=== PATIENT | female | born 1955 | race Caucasian/White ===

== ENCOUNTER 2020-11-07 13:43 | Observation (INO) ==
[2020-11-07 14:32] LABS: Basophils % 0.3 %; Eosinophils # 0.7 K/mcL (0.0-0.6); Eosinophils % 4.6 %; Hematocrit 40.5 % (35.3-44.9); Hemoglobin 13.2 g/dL (11.5-15.4); Immature Granulocytes % 0.4 % (0-4); Lymphocytes # 3.7 K/mcL (0.6-4.6); Lymphocytes % 26.1 %; Mean Corpuscular HGB Conc 32.6 g/dL (31.6-35.5); Mean Corpuscular Hemoglobin 27.6 pg (28.0-33.3); Mean Corpuscular Volume 84.6 fL (83.0-100.0); Monocytes # 0.9 K/mcL (0.0-1.3); Neutrophils # 8.9 K/mcL (1.6-8.9); Platelet Count 296 K/mcL (140-400); Red Blood Count 4.79 M/mcL (3.82-4.97); Red Cell Distribution Width 14.6 % (11.5-14.5); Segmented Neutrophils % 62.6 %; White Blood Count 14.2 K/mcL (4.3-11.1)
[2020-11-07 14:41] LABS: ABG Base Excess 4 mEq/L (-2 to 3); ABG HCO3 29 mEq/L (21-27); ABG Oxygen Saturation 93 % (95-98); ABG PCO2 44 mmHg (35-45); ABG PH 7.43 pH Units (7.32-7.45); ABG PO2 67 mmHg (85-104); ABG TCO2 30 mEq/L (20-26)
[2020-11-07 14:49] LABS: Activated Partial Thrombo Time 31.8 Seconds (26.0-36.0); Prothrombin Time 11.7 Seconds (9.4-12.1)
[2020-11-07 14:51] LABS: Alanine Aminotransferase 30 Units/L (7-52); Albumin/Globulin Ratio 1.6 (1.1-2.2); Alkaline Phosphatase 41 Units/L (34-104); Aspartate Amino Transferase 36 Units/L (13-39); BUN/Creatinine Ratio 28 (6-26); Bilirubin,Direct 0.1 mg/dL (0.0-0.2); Bilirubin,Indirect 0.4 mg/dL (0.0-1.0); Bilirubin,Total 0.5 mg/dL (0.3-1.0); Blood Urea Nitrogen 28 mg/dL (8-23); Calcium 9.1 mg/dL (8.6-10.3); Carbon Dioxide 30 mEq/L (23-29); Chloride 101 mEq/L (98-107); Ethanol < 10 mg/dL (Less than 10); Globulin 2.5 g/dL (2.4-3.5); Glucose 113 mg/dL (70-105); Osmolality,Calculated 294 (280-300); Potassium 3.6 mEq/L (3.5-5.1); Sodium 139 mEq/L (136-145); Total Protein 6.5 g/dL (6.4-8.9); eGFR For African Americans > 60 (> 60); eGFR For Non-African Americans 56 (> 60)
[2020-11-07 14:52] LABS: Troponin I < 0.03 ng/mL (< 0.04)
[2020-11-07 15:12] LABS: Bilirubin,Urine Small (Negative); Blood,Urine Negative (Negative); Clarity,Urine Clear (Clear); Glucose,Urine (UA) Normal (Normal); Ketones,Urine Trace mg/dL (Negative); Leukocyte Esterase,Urine Negative (Negative); Nitrite,Urine Negative (Negative); PH,Urine 5.5 pH Units (5.0-8.0); Protein,Urine Negative (Neg-Trace); Specific Gravity,Urine >= 1.030 (1.010-1.025); Urobilinogen,Urine Normal (Normal)
[2020-11-07 15:15] LABS: Platelet Estimate Normal (Normal); Reactive Lymphocytes Present (Not Present)
[2020-11-07 15:25] LABS: Amphetamine Screen,Urine Negative ng/mL (Cutoff=1000); Barbiturate Screen,Urine Negative ng/mL (Cutoff=200); Benzodiazepines Screen,Urine Negative ng/mL (Cutoff=200); Cannabinoid Screen,Urine Positive ng/mL (Cutoff = 50); Cocaine Screen,Urine Negative ng/mL (Cutoff= 300); Opiate Screen,Urine Negative ng/mL (Cutoff=300); Phencyclidine Screen,Urine Negative ng/mL (Cutoff=25)
[2020-11-07] MEDS ORDERED: Naloxone 0.4 MG/ML INJ IVP PRN (20:27)
[2020-11-07] MEDS ORDERED: traZODone 50 MG TABLET PO SCH (21:00)
[2020-11-07] MEDS: Carbidopa/Levodopa 25/100 TABLET PO SCH (21:47)
[2020-11-07] MEDS: Budesonide/Formoterol 160/4.5 1 PUFF INH IH SCH (23:11)
[2020-11-08] MEDS ORDERED: QUEtiapine Fumarate 25 MG TABLET PO SCH (09:00)
[2020-11-08] MEDS ORDERED: hydrOXYzine pamoate 25 MG CAPSULE PO SCH (09:00)
[2020-11-08] MEDS ORDERED: amLODIPine 5 MG TABLET PO SCH (09:00)
[2020-11-08] MEDS: Carbidopa/Levodopa 25/100 TABLET PO SCH (09:19)
[2020-11-08] MEDS ORDERED: Tiotropium 10 INH DOSE IH SCH (10:00)
[2020-11-08] MEDS: Budesonide/Formoterol 160/4.5 1 PUFF INH IH SCH (10:14)
[2020-11-08 15:30] VITALS: BP 96/54
[2020-11-08] MEDS ORDERED: *HR* Heparin 5,000 UNIT/ML VIAL SQ SCH (18:00)
== END 2020-11-08 17:15 ==
LOC: INPPIK 13:43 → EMEROOPIK 13:43 → INPPIK 20:10
PROVIDERS: ADMIT Family Medicine; ATTEND Family Medicine